=== PATIENT | female | born 1965 | race Two or more races ===

== ENCOUNTER 2021-08-09 08:00 | Outpatient (CLI) | payer OTHER ==
[2021-09-11] MEDS ORDERED: ATORVASTATIN CA20 MG (06:49)
[2021-09-11] MEDS ORDERED: METFORMIN HCL500 MG (06:49)
[2021-09-11] MEDS ORDERED: DUI500 PO (07:29)
[2021-09-11] MEDS ORDERED: KETO10TA2 PO (07:29)
== END 2021-08-09 08:30 | disposition home or self-care (01) ==
LOC: PPH VACUNA 08:00
PROVIDERS: ATTEND Emergency Medicine Pediatric Emergency Medicine
DX: Z23 Encounter for immunization (principal)

== ENCOUNTER → 2021-09-11 | Emergency (ER) | payer OTHER ==
[~2021-09-11] VITALS: Ht 160 cm; Wt 88.5 kg
[~2021-09-11] MED LIST: ATORVASTATIN CA20 MG; DUI500 PO; KETO10TA2 PO; METFORMIN HCL500 MG
== END | disposition home or self-care (01) ==
LOC: ER 06:37
DX: S61.412A Laceration without foreign body of left hand, initial encounter (principal); W26.0XXA Contact with knife, initial encounter; Y93.9 Activity, unspecified; Y92.9 Unspecified place or not applicable; Y99.9 Unspecified external cause status

== ENCOUNTER 2022-02-14 12:55 | Emergency (ER) | payer OTHER ==
[~2022-02-14] VITALS: Ht 160 cm; Wt 96.2 kg
[2022-02-14] MEDS ORDERED: COZAAR50 MG PO (13:06)
== END 2022-02-14 15:50 | disposition home or self-care (01) ==
LOC: ER 12:55
DX: M94.0 Chondrocostal junction syndrome [Tietze] (principal); E11.65 Type 2 diabetes mellitus with hyperglycemia; Z79.84 Long term (current) use of oral hypoglycemic drugs; I10 Essential (primary) hypertension

== ENCOUNTER 2022-02-14 14:03 | Outpatient (CLI) | payer OTHER ==
[~2022-02-14 14:03] MED LIST changes: +COZAAR50 MG PO
== END 2022-02-14 14:17 | disposition home or self-care (01) ==
LOC: MAMO-SONO 14:03
DX: Z12.31 Encounter for screening mammogram for malignant neoplasm of breast (principal)

== ENCOUNTER 2022-06-19 08:03 | Emergency (ER) | payer OTHER | END 2022-06-19 13:42 | disposition home or self-care (01) | LOC: ER 08:03 | DX: I16.9 Hypertensive crisis, unspecified (principal); I10 Essential (primary) hypertension; E11.9 Type 2 diabetes mellitus without complications; Z79.84 Long term (current) use of oral hypoglycemic drugs; Z20.822 Contact with and (suspected) exposure to COVID-19 ==

== ENCOUNTER 2022-09-01 14:02 | Emergency (ER) | payer OTHER ==
[~2022-09-01] VITALS: Ht 160 cm; Wt 92.5 kg
[2022-09-01] MEDS ORDERED: NORFLEX100MG PO (15:43)
[2022-09-01] MEDS ORDERED: KETO10TA2 PO (15:43)
== END 2022-09-01 15:51 | disposition home or self-care (01) ==
LOC: ER 14:02
DX: M54.50 Low back pain, unspecified (principal)

== ENCOUNTER → 2023-05-22 | Emergency (ER) | payer OTHER ==
[~2023-05-22] VITALS: Ht 160 cm; Wt 79.4 kg
[~2023-05-22] MED LIST changes: +NORFLEX100MG PO; +TUSNEL LIQUID178 ML PO; +ZITHROMAX500 MG PO
[2023-05-22 09:45] LABS: HEMOGLOBIN 13.1 g/dL (12.0-15.00); MEAN CELL VOLUME 91.3 fL (80.00-100.00); MEAN CORPUSCULAR HEMOGLOBIN 31.5 pg (27.00-32.0); MEAN CORPUSCULAR HGB CONC 34.5 g/dl (32.0-36.0); PLATELET COUNT 149 K/uL (150-450); RED BLOOD COUNT 4.17 M/uL (4.00-6.00); RED CELL DISTRIBUTION WIDTH 13.8 % (11.5-14.5)
== END | disposition home or self-care (01) ==
LOC: ER 08:07
PROVIDERS: General Practice
DX: B34.9 Viral infection, unspecified (principal); Z20.822 Contact with and (suspected) exposure to COVID-19; I10 Essential (primary) hypertension; E11.9 Type 2 diabetes mellitus without complications; Z79.84 Long term (current) use of oral hypoglycemic drugs

== ENCOUNTER 2023-08-22 05:35 | Emergency (ER) | payer OTHER ==
[~2023-08-22] VITALS: Ht 160 cm; Wt 89.8 kg
[2023-08-22 07:28] LABS: HEMATOCRIT 41.1 % (36.0-45.00); HEMOGLOBIN 14.2 g/dL (12.0-15.00); MEAN CELL VOLUME 89.9 fL (80.00-100.00); MEAN CORPUSCULAR HGB CONC 34.5 g/dl (32.0-36.0); PLATELET COUNT 186 K/uL (150-450); RED BLOOD COUNT 4.58 M/uL (4.00-6.00)
[2023-08-22 07:48] LABS: BILIRUBIN TOTAL 0.5 mg/dL (0.3-1.2); CALCIUM 9.3 mg/dL (8.5-10.1); CREATININE SERUM 1.14 mg/dL (0.55-1.02); GFR 49.48; GLOBULINA 3.9 G/DL (2.4-3.5); POTASSIUM 3.03 mEq/L (3.5-5.1); TOTAL PROTEIN 7.9 gm/dL (6.4-8.2)
[2023-08-22 10:08] LABS: URINE APPEARANCE Clear; URINE BILIRRUBIN Negative (NEGATIVE); URINE BLOOD Negative; URINE COLOR Yellow; URINE LEUKOCYTE Negative; URINE NITRATE Negative; URINE PROTEIN Negative (NEGATIVE); URINE UROBILINOGEN 0.2 E.U./dl
[2023-08-22 10:10] LABS: URINE BACTERIA 1611.5 uL (0.0-1933); URINE EPITHELIAL CELLS 22.4 uL (0.0-38.8); URINE RBC 2.5 uL (0.0-20.8)
[2023-08-22 10:18] LABS: URINE GLUCOSE 100 MG/DL (NEGATIVE); URINE WBC 1.2 uL (0.0-23.2)
== END 2023-08-22 10:38 | disposition home or self-care (01) ==
LOC: ER
PROVIDERS: General Practice
DX: R07.9 Chest pain, unspecified (principal); F41.9 Anxiety disorder, unspecified; E11.65 Type 2 diabetes mellitus with hyperglycemia; Z79.84 Long term (current) use of oral hypoglycemic drugs; I10 Essential (primary) hypertension

== ENCOUNTER 2024-02-08 16:07 | Emergency (ER) | payer OTHER ==
[~2024-02-08] VITALS: Ht 160 cm; Wt 89.8 kg
[~2024-02-08 16:07] MED LIST changes: +ATORVASTATIN CA10 MG PO; +GLUMETZA500 MG PO
[2024-02-08] MEDS ORDERED: KETOROLAC TROMETHAMINE 60 MG VIAL IM ONE (17:30)
[2024-02-08 18:04] LABS: HEMATOCRIT 39.9 % (36.0-45.00); HEMOGLOBIN 13.7 g/dL (12.0-15.00); MEAN CELL VOLUME 91.6 fL (80.00-100.00); MEAN CORPUSCULAR HEMOGLOBIN 31.4 pg (27.00-32.0); MEAN CORPUSCULAR HGB CONC 34.3 g/dl (32.0-36.0); PLATELET COUNT 146 K/uL (150-450); RED BLOOD COUNT 4.35 M/uL (4.00-6.00); RED CELL DISTRIBUTION WIDTH 13.6 % (11.5-14.5)
[2024-02-08 18:44] LABS: ALBUMIN 3.6 gm/dL (3.4-5.0); BILIRUBIN TOTAL 0.36 mg/dL (0.3-1.2); CREATININE SERUM 1.13 mg/dL (0.55-1.02); GFR 49.81; GLOBULINA 3.2 G/DL (2.4-3.5); POTASSIUM 3.81 mEq/L (3.5-5.1); TOTAL PROTEIN 6.8 gm/dL (6.4-8.2)
[2024-02-08 19:26] LABS: PH,URINE 6.5 (5.0-8.0); URINE APPEARANCE Clear; URINE BILIRRUBIN Negative (NEGATIVE); URINE BLOOD Negative; URINE COLOR Yellow; URINE LEUKOCYTE Negative; URINE NITRATE Negative; URINE PROTEIN Negative (NEGATIVE); URINE UROBILINOGEN 0.2 E.U./dl
[2024-02-08 19:31] LABS: URINE BACTERIA 1114.6 uL (0.0-1933); URINE EPITHELIAL CELLS 12.7 uL (0.0-38.8); URINE RBC 2.4 uL (0.0-20.8); URINE WBC 2.1 uL (0.0-23.2)
[2024-02-08 19:33] LABS: URINE GLUCOSE >=1000 MG/DL (NEGATIVE)
== END 2024-02-09 01:32 | disposition home or self-care (01) ==
LOC: ER 16:08
PROVIDERS: Emergency Medicine
DX: S70.01XA Contusion of right hip, initial encounter (principal); W18.39XA Other fall on same level, initial encounter; Y93.89 Activity, other specified; Y92.013 Bedroom of single-family (private) house as the place of occurrence of the external cause; Y99.9 Unspecified external cause status; R55 Syncope and collapse; I10 Essential (primary) hypertension; E11.9 Type 2 diabetes mellitus without complications; Z79.84 Long term (current) use of oral hypoglycemic drugs

== ENCOUNTER 2024-07-08 11:56 | Emergency (ER) | payer OTHER ==
[~2024-07-08] VITALS: Ht 162.6 cm; Wt 97.5 kg
[2024-07-08 12:04] VITALS: O2SAT 98
[2024-07-08] MEDS ORDERED: hydrOXYzine PAMOATE 50 MG CAPSULE PO STA (12:47)
[2024-07-08] MEDS ORDERED: KETOROLAC TROMETHAMINE 60 MG VIAL IM STA (12:47)
[2024-07-08] MEDS ORDERED: CLONIDINE HCL 0.1 MG TABLET PO STA (12:59)
[2024-07-08 13:08] LABS: HEMATOCRIT 39.1 % (36.0-45.00); HEMOGLOBIN 13.4 g/dL (12.0-15.00); MEAN CELL VOLUME 91.2 fL (80.00-100.00); MEAN CORPUSCULAR HEMOGLOBIN 31.3 pg (27.00-32.0); MEAN CORPUSCULAR HGB CONC 34.3 g/dl (32.0-36.0); PLATELET COUNT 167 K/uL (150-450); RED BLOOD COUNT 4.29 M/uL (4.00-6.00); RED CELL DISTRIBUTION WIDTH 13.7 % (11.5-14.5)
[2024-07-08 13:54] LABS: CALCIUM 9.6 mg/dL (8.5-10.1); CREATININE SERUM 1.14 mg/dL (0.55-1.02); GFR 49.3; POTASSIUM 3.93 mEq/L (3.5-5.1)
[2024-07-08 14:00] VITALS: BP 148/80
== END 2024-07-08 14:32 | disposition home or self-care (01) ==
LOC: ER 11:56
PROVIDERS: General Practice
DX: F41.9 Anxiety disorder, unspecified (principal); I10 Essential (primary) hypertension

== ENCOUNTER → 2024-10-08 | Emergency (ER) | payer OTHER ==
[~2024-10-08] VITALS: Ht 160 cm; Wt 81.6 kg
[~2024-10-08] MED LIST changes: +DEXAMETHASONE SODIUM PHOSPHATE 4 MG/ML VIAL IM STA; +KETOROLAC TROMETHAMINE 60 MG VIAL IM STA; +MEDROLPACK PO; +ORPHENADRINE CITRATE 30 MG/ML AMPUL IM STA
== END | disposition home or self-care (01) ==
LOC: ER 10:55
DX: M54.50 Low back pain, unspecified (principal); R10.2 Pelvic and perineal pain

== ENCOUNTER → 2025-02-09 | Emergency (ER) | payer OTHER ==
[~2025-02-09] VITALS: Ht 160 cm; Wt 87.5 kg
[~2025-02-09] MED LIST changes: -DEXAMETHASONE SODIUM PHOSPHATE 4 MG/ML VIAL IM STA; +KETOROLAC TROMETHAMINE 30 MG VIAL IM STA; -KETOROLAC TROMETHAMINE 60 MG VIAL IM STA; -ORPHENADRINE CITRATE 30 MG/ML AMPUL IM STA
[2025-02-09 20:33] VITALS: BP 130/78; O2SAT 98
== END | disposition home or self-care (01) ==
LOC: ER 16:11
DX: M79.604 Pain in right leg (principal); I10 Essential (primary) hypertension; E11.9 Type 2 diabetes mellitus without complications; Z79.84 Long term (current) use of oral hypoglycemic drugs

== ENCOUNTER 2025-03-25 12:38 | Emergency (ER) | payer OTHER ==
[~2025-03-25] VITALS: Ht 162.6 cm; Wt 88.9 kg
[~2025-03-25 12:38] MED LIST changes: -KETOROLAC TROMETHAMINE 30 MG VIAL IM STA
== END 2025-03-25 13:32 | disposition home or self-care (01) ==
LOC: ER 12:52
DX: F41.9 Anxiety disorder, unspecified (principal); R07.89 Other chest pain; I10 Essential (primary) hypertension; E11.9 Type 2 diabetes mellitus without complications; Z79.84 Long term (current) use of oral hypoglycemic drugs

== ENCOUNTER 2025-04-05 10:11 | Emergency (ER) | payer OTHER ==
[~2025-04-05] VITALS: Ht 160 cm; Wt 88.9 kg
[2025-04-05] MEDS ORDERED: KETOROLAC TROMETHAMINE 60 MG VIAL IM ONE (12:15)
[2025-04-05] MEDS ORDERED: ORPHENADRINE CITRATE 30 MG/ML AMPUL IM ONE (12:15)
== END 2025-04-05 14:15 | disposition home or self-care (01) ==
LOC: ER 10:11
DX: M79.604 Pain in right leg (principal); I10 Essential (primary) hypertension; E11.9 Type 2 diabetes mellitus without complications; Z79.84 Long term (current) use of oral hypoglycemic drugs

== ENCOUNTER 2025-06-01 05:21 | Emergency (ER) | payer OTHER ==
[~2025-06-01] VITALS: Ht 160 cm; Wt 81.6 kg
[2025-06-01 05:33] VITALS: O2SAT 99
[2025-06-01] MEDS ORDERED: ENALAPRILAT DIHYDRATE 1.25 MG/ML VIAL IV ONE ×2 (07:15→07:30)
[2025-06-01] MEDS ORDERED: ONDANSETRON HCL 2 MG/ML VIAL IV STA (07:16)
[2025-06-01] MEDS ORDERED: FAMOTIDINE/PF 20 MG/2 ML VIAL IV STA (07:16)
[2025-06-01] MEDS ORDERED: SODIUM CHLORIDE 0.45 % 500 ML IV SCH (07:30)
[2025-06-01] MEDS ORDERED: ONDANSETRON HCL 2 MG/ML VIAL ONE (07:30)
[2025-06-01] MEDS ORDERED: METOCLOPRAMIDE HCL 5 MG/ML VIAL IV ONE (07:30)
[2025-06-01] MEDS ORDERED: METOCLOPRAMIDE HCL 5 MG/ML VIAL ONE (07:31)
[2025-06-01] MEDS ORDERED: FAMOTIDINE/PF 20 MG/2 ML VIAL ONE (07:31)
[2025-06-01 08:03] VITALS: BP 140/70
[2025-06-01 08:12] LABS: BASO % 1.1 % (0.1-1.2); EOS # 0.24 (0.04-0.54); EOS % 3.8 % (0.7-7.0); LYMPH # 1.73 (1.18-3.74); LYMPH % 27.1 % (19.3-53.1); MEAN PLATELET VOLUME 11.00 fl (9.4-12.4); MONO # 0.51 (0.24-0.82); MONO % 8.0 % (4.7-12.5); NEUT # 3.81 (1.56-6.13); NEUT % 59.7 % (34.0-71.1); RED CELL DISTRIBUTION WIDTH 13.7 % (11.6-14.4)
[2025-06-01 08:34] LABS: BUN CREA RATIO 17.0 (7.0-25.0); CREATININE SERUM 0.82 mg/dL (0.55-1.02); GFR 71.85; OSMOLALITY SERUM 288.0 MOSM/KG (275-295)
[2025-06-01 08:35] LABS: GLUCOSE FASTING 212.0 mg/dL (65-100)
== END 2025-06-01 11:00 | disposition home or self-care (01) ==
LOC: ER 05:21
PROVIDERS: General Practice
DX: T88.1XXA Other complications following immunization, not elsewhere classified, initial encounter (principal); Y92.89 Other specified places as the place of occurrence of the external cause; R53.81 Other malaise; E11.9 Type 2 diabetes mellitus without complications; Z79.84 Long term (current) use of oral hypoglycemic drugs; I10 Essential (primary) hypertension

== ENCOUNTER → 2025-06-28 | Emergency (ER) | payer OTHER ==
[~2025-06-28] VITALS: Ht 160 cm; Wt 81.6 kg
[2025-06-28 12:31] VITALS: BP 160/90; O2SAT 98
== END | disposition left against medical advice (07) ==
LOC: ER 11:39
DX: Z53.21 Procedure and treatment not carried out due to patient leaving prior to being seen by health care provider (principal)